=== PATIENT | male | born 1965 ===

== ENCOUNTER 2020-11-01 19:58 | Emergency (ER) | payer OTHER ==
[~2020-11-01] VITALS: Ht 165.1 cm; Wt 96.8 kg
--- NOTE | 2020-11-01 20:03 | NUR ---
PT BIB LAW ENFORCEMENT FOR HTN. UPON ARRIVAL PT BP IS 157/85. PT NAD, REPORTS SLIGHT FARRELL, PALCED ON SPO2/BP MONITORING. HX OF HTN, TAKES LOW DOSE OF [place] DAILY. BED IN LOWEST, NAD, DENIES ADDITIONAL NEEDS AT THIS TIME. COOPER MCNULTY AT BS FOR EVAL AND POC. WCTM.
[2020-11-01] MEDS ORDERED: LOSA50TA14 PO (20:05)
[2020-11-01] MEDS ORDERED: METF500T27 PO (20:05)
--- NOTE | 2020-11-01 20:18 | NUR ---
pt medicated per mar at this time.
[2020-11-01] MEDS ORDERED: LOSARTAN 50MG TABLET PO ONE (20:30)
[2020-11-01 20:46] VITALS: BP 157/87
== END 2020-11-01 22:18 | disposition home or self-care (01) ==
LOC: ED 22:17
DX: F43.0 Acute stress reaction (principal); I10 Essential (primary) hypertension; F41.1 Generalized anxiety disorder
CPT/HCPCS: 99283